=== PATIENT | female | born 1985 | race Caucasian/White ===

== ENCOUNTER 2017-07-28 12:50 | Inpatient (IN) | payer OTHER ==
[~2017-07-28 12:50] MED LIST: OXYTOCIN 30 UNITS/LR 500 ML BAG IV
[2017-07-28 13:07] LABS: URINE PH (Dip) POC 5.5 (5.0-8.5)
[2017-07-28 13:07] LABS: URINE BLOOD (Dip) POC Negative (NEGATIVE); URINE GLUCOSE (Dip) POC Negative (NEGATIVE); URINE KETONES (Dip) POC Negative (NEGATIVE); URINE LEUKOCYTE EST (Dip) POC Negative (NEGATIVE); URINE NITRITE (Dip) POC Negative (NEGATIVE); URINE TOTAL PROTEIN POC Negative (NEGATIVE)
[2017-07-28 13:34] LABS: ADD UMIC NO; UR ASCORBIC ACID NEGATIVE (NEGATIVE); UR BILIRUBIN (Dip) NEGATIVE (NEGATIVE); UR BLOOD (Dip) NEGATIVE (NEGATIVE); UR CLARITY CLEAR (CLEAR); UR COLOR STRAW (YELLOW); UR GLUCOSE (Dip) NEGATIVE (NEGATIVE); UR KETONES (Dip) NEGATIVE (NEGATIVE); UR LEUKOCYTE ESTERASE (Dip) NEGATIVE Leu/ul (NEGATIVE); UR NITRITE (Dip) NEGATIVE (NEGATIVE); UR SPECIFIC GRAVITY (Dip) 1.008 (1.003-1.030); UR TOTAL PROTEIN (Dip) NEGATIVE (NEGATIVE); UR UROBILINOGEN (Dip) NEGATIVE (NEGATIVE)
[2017-07-28 14:03] LABS: ADD MAN DIFF? NO
[2017-07-28 14:07] LABS: BASOPHILS % 0.3 % (0.0-2.0); EOSINOPHILS # 0.1 10^3/ul (0.0-0.5); EOSINOPHILS % 0.6 % (0.0-7.0); HEMOGLOBIN 12.1 g/dl (12.0-16.0); LYMPHOCYTES % 15.8 % (15.0-51.0); MEAN CORPUSCULAR HEMOGLOBIN 28.7 pg (29.0-33.0); MEAN CORPUSCULAR HGB CONC 33.6 g/dl (32.0-37.0); MEAN CORPUSCULAR VOLUME 85.5 fl (82.0-101.0); MEAN PLATELET VOLUME 11.8 fl (7.4-10.4); MONOCYTE # 0.8 10^3/ul (0.3-0.9); MONOCYTES % 6.6 % (0.0-11.0); NEUTROPHIL # 9.3 10^3/ul (1.6-7.5); NEUTROPHILS % 75.6 % (39.0-77.0); PLATELET COUNT 220 10^3/UL (140-415); RED BLOOD COUNT 4.21 10^6/ul (4.20-5.40); RED CELL DISTRIBUTION WIDTH 14.4 % (11.5-14.5)
[2017-07-28 14:07] LABS: WHITE BLOOD COUNT 12.3 10^3/ul (4.8-10.8)
[2017-07-28 14:21] LABS: INR 0.98; PARTIAL THROMBOPLASTIN TIME 29.8 Sec (25.0-35.0); PROTIME 13.1 Sec (11.9-14.9)
[2017-07-28 14:23] LABS: ALANINE AMINOTRANSFERASE 34 IU/L (13-69); ALBUMIN 3.3 g/dl (3.3-4.9); ALBUMIN/GLOBULIN RATIO 0.97; ALKALINE PHOSPHATASE 95 IU/L (42-121); ANION GAP 14 (8-16); ASPARTATE AMINO TRANSFERASE 25 IU/L (15-46); BILIRUBIN,INDIRECT 0.1 mg/dl (0-1.1); BILIRUBIN,TOTAL 0.1 mg/dl (0.2-1.3); BLOOD UREA NITROGEN 9 mg/dl (7-20); CALCIUM 8.7 mg/dl (8.4-10.2); CARBON DIOXIDE 18 mmol/L (21-31); CHLORIDE 106 mmol/L (97-110); CREATININE 0.65 mg/dl (0.44-1.00); GLUCOSE 63 mg/dl (70-220); SODIUM 134 mmol/L (135-144); TOTAL PROTEIN 6.7 g/dl (6.1-8.1); URIC ACID 5.8 mg/dl (3.1-7.9)
[2017-07-28] MEDS: LACTATED RINGER'S 1,000 ML IV ×2 (16:30→17:15)
[2017-07-28] MEDS ORDERED: CARBOPROST 250 MCG INJ IM ×2 (17:00→20:00)
[2017-07-28] MEDS ORDERED: METHYLERGONOVINE 0.2 MG INJ IM ×2 (17:00→20:00)
[2017-07-28] MEDS ORDERED: OXYTOCIN 30 UNITS/LR 500 ML IV ×2 (17:00→20:00)
[2017-07-28] MEDS ORDERED: MISOPROSTOL 200 MCG TAB PR ×2 (17:00→20:00)
[2017-07-28] MEDS ORDERED: FAMOTIDINE 20 MG INJ (17:07)
[2017-07-28] MEDS ORDERED: METOCLOPRAMIDE 10 MG INJ (17:08)
[2017-07-28] MEDS ORDERED: CEFAZOLIN 2 GM/50 ML (PMX) 50 ML IVPB (17:08)
[2017-07-28] MEDS: FAMOTIDINE 20 MG INJ IV (17:15)
[2017-07-28] MEDS: METOCLOPRAMIDE 10 MG INJ IV (17:15)
[2017-07-28] MEDS: ONDANSETRON 4 MG INJ IV (17:15)
[2017-07-28] MEDS ORDERED: ONDANSETRON 4 MG INJ (17:16)
[2017-07-28] MEDS ORDERED: morphine SULFATE/PF (10 MG/10 ML) INJ (17:45)
[2017-07-28 18:17] LABS: ADD MAN DIFF? NO
[2017-07-28 18:24] LABS: BASOPHILS % 0.2 % (0.0-2.0); EOSINOPHILS % 0.3 % (0.0-7.0); HEMATOCRIT 37.3 % (37.0-47.0); HEMOGLOBIN 12.5 g/dl (12.0-16.0); LYMPHOCYTES # 1.8 10^3/ul (0.8-2.9); LYMPHOCYTES % 14.7 % (15.0-51.0); MEAN CORPUSCULAR HEMOGLOBIN 28.6 pg (29.0-33.0); MEAN CORPUSCULAR HGB CONC 33.5 g/dl (32.0-37.0); MEAN CORPUSCULAR VOLUME 85.4 fl (82.0-101.0); MEAN PLATELET VOLUME 12.5 fl (7.4-10.4); MONOCYTE # 0.7 10^3/ul (0.3-0.9); MONOCYTES % 5.3 % (0.0-11.0); NEUTROPHIL # 9.7 10^3/ul (1.6-7.5); NEUTROPHILS % 78.4 % (39.0-77.0); PLATELET COUNT 231 10^3/UL (140-415); RED BLOOD COUNT 4.37 10^6/ul (4.20-5.40); RED CELL DISTRIBUTION WIDTH 14.6 % (11.5-14.5)
[2017-07-28 18:24] LABS: WHITE BLOOD COUNT 12.3 10^3/ul (4.8-10.8)
[2017-07-28 18:32] LABS: INR 1.03; PROTIME 13.6 Sec (11.9-14.9); PT RATIO 1.1
[2017-07-28 18:33] LABS: PARTIAL THROMBOPLASTIN TIME 30.9 Sec (25.0-35.0)
[2017-07-28] MEDS ORDERED: ONDANSETRON 4 MG INJ IV (19:00)
[2017-07-28] MEDS ORDERED: NALOXONE (0.4 MG/ML) INJ IV (19:00)
[2017-07-28] MEDS ORDERED: HYDROmorphONE 0.5 MG/0.5 ML SYG IV (19:00)
[2017-07-28] MEDS ORDERED: DIPHENHYDRAMINE 50 MG INJ IV (19:00)
[2017-07-28] MEDS: CEFAZOLIN 2 GM/50 ML (PMX) 50 ML IV (19:53)
[2017-07-28] MEDS ORDERED: LACTATED RINGER'S 1,000 ML IV (19:54)
[2017-07-28] MEDS: OXYTOCIN 30 UNITS/LR 500 ML IV (19:56)
[2017-07-28] MEDS ORDERED: OXYCODONE/ACETAMINOPHEN (5/325) TAB PO (20:00)
[2017-07-28] MEDS ORDERED: NA PHOSPHATE/BIPHOS 133 ML ENEMA PR (20:00)
[2017-07-28] MEDS ORDERED: ACETAMINOPHEN 500 MG TAB PO (20:00)
[2017-07-28] MEDS ORDERED: IBUPROFEN 600 MG TAB PO (20:00)
[2017-07-28] MEDS ORDERED: METHYLERGONOVINE 0.2 MG TAB PO (20:00)
[2017-07-28] MEDS: KETOROLAC 30 MG INJ IV (23:16)
[2017-07-29] MEDS: OXYTOCIN 30 UNITS/LR 500 ML IV ×2 (00:09→09:08)
[2017-07-29 08:07] LABS: ADD MAN DIFF? NO
[2017-07-29 08:15] LABS: WHITE BLOOD COUNT 10.7 10^3/ul (4.8-10.8)
[2017-07-29 08:15] LABS: BASOPHILS % 0.3 % (0.0-2.0); EOSINOPHILS % 0.2 % (0.0-7.0); HEMATOCRIT 32.6 % (37.0-47.0); HEMOGLOBIN 10.9 g/dl (12.0-16.0); LYMPHOCYTES # 1.1 10^3/ul (0.8-2.9); LYMPHOCYTES % 9.9 % (15.0-51.0); MEAN CORPUSCULAR HEMOGLOBIN 28.8 pg (29.0-33.0); MEAN CORPUSCULAR HGB CONC 33.4 g/dl (32.0-37.0); MEAN CORPUSCULAR VOLUME 86.2 fl (82.0-101.0); MEAN PLATELET VOLUME 11.2 fl (7.4-10.4); MONOCYTE # 0.7 10^3/ul (0.3-0.9); MONOCYTES % 6.5 % (0.0-11.0); NEUTROPHIL # 8.8 10^3/ul (1.6-7.5); NEUTROPHILS % 82.6 % (39.0-77.0); PLATELET COUNT 193 10^3/UL (140-415); RED BLOOD COUNT 3.78 10^6/ul (4.20-5.40); RED CELL DISTRIBUTION WIDTH 14.4 % (11.5-14.5)
[2017-07-29] MEDS: LANOLIN 7 GM TUBE TOP (08:59)
[2017-07-29] MEDS: KETOROLAC 30 MG INJ IV ×2 (09:00→14:45)
[2017-07-29 14:55] LABS: RAPID PLASMA REAGIN NONREACTIVE (NR)
[2017-07-29] MEDS: OXYCODONE/ACETAMINOPHEN (5/325) TAB PO (20:25)
[2017-07-29 22:11] LABS: RHOGAM PROFILE 1 1
[2017-07-30] MEDS: OXYCODONE/ACETAMINOPHEN (5/325) TAB PO ×5 (02:25→23:03)
[2017-07-30] MEDS: LACTATED RINGER'S 1,000 ML IV ×3 (03:45→19:45)
[2017-07-30] MEDS: OXYTOCIN 30 UNITS/LR 500 ML IV ×2 (06:04→16:04)
[2017-07-30] MEDS: INFLUENZA VIRUS VACCINE 0.5 ML SYG IM* (15:18)
[2017-07-31] MEDS: OXYTOCIN 30 UNITS/LR 500 ML IV (02:04)
[2017-07-31] MEDS: LACTATED RINGER'S 1,000 ML IV (03:45)
[2017-07-31] MEDS: OXYCODONE/ACETAMINOPHEN (5/325) TAB PO ×3 (04:03→13:48)
[2017-07-31] MEDS: DIPHTH/TET/ACEL PERTUSS (ADULT) 0.5 ML VIAL IM* (14:56)
== END 2017-07-31 15:45 | disposition home or self-care (01) | DRG 766 ==
LOC: OBT 12:50 → PP1 07-29 15:40 → L-D 12:52 → OBT 16:40 → L-D 16:40 → PP1 23:57
PROC: 10D00Z1 Extraction of Products of Conception, Low, Open Approach (ICD-10-PCS; principal; 2017-07-28)
PROC: 0UB70ZZ Excision of Bilateral Fallopian Tubes, Open Approach (ICD-10-PCS; 2017-07-28)
DX: O60.14X0 Preterm labor third trimester with preterm delivery third trimester, not applicable or unspecified (principal); Z37.0 Single live birth; O34.211 Maternal care for low transverse scar from previous cesarean delivery; Z3A.36 36 weeks gestation of pregnancy
CPT/HCPCS: 36415; 76818; 80053; 81003; 84560; 85025; 85384; 85610; 85730; 86592; 86850; 86885; 86900; 86901; 88302; 90686; 90715; 94760; 96360; 99464